=== PATIENT | female | born 2000 | race Two or more races ===

== ENCOUNTER 2024-03-26 12:06 | Emergency (ER) | payer BC ==
[~2024-03-26] VITALS: Ht 162.6 cm; Wt 74.8 kg
[2024-03-26] MEDS ORDERED: KETOROLAC TROMETHAMINE 30 MG VIAL IM STA (15:00)
[2024-03-26] MEDS ORDERED: KETOROLAC TROMETHAMINE 30 MG VIAL ONE (15:26)
[2024-03-26] MEDS ORDERED: IBU600 MG PO (15:56)
== END 2024-03-26 16:05 | disposition home or self-care (01) ==
LOC: ER 12:08
DX: S93.691A Other sprain of right foot, initial encounter (principal); W19.XXXA Unspecified fall, initial encounter; Y93.89 Activity, other specified; Y92.89 Other specified places as the place of occurrence of the external cause; Y99.8 Other external cause status